=== PATIENT | male | born 1950 | race Caucasian/White ===

== ENCOUNTER 2023-08-16 05:51 | Observation (INO) ==
[2023-08-16] MEDS ORDERED: Buffered Lidocaine 1% SYRIN 1 ml INTRADERM ONE (06:00)
[2023-08-16] MEDS ORDERED: Famotidine IV 10 MG/ML 2 ml VIAL (20 mg) IV ONE (06:00)
[2023-08-16] MEDS ORDERED: Lactated Ringers 1000 ml BAG 1,000 ML IV SCH (06:00)
[2023-08-16] MEDS ORDERED: Tranexamic Acid 1 GM/100ML BAG 2,000 MG/200 ML BAG IV ONE (06:07)
[2023-08-16] MEDS ORDERED: ceFAZolin 2 GM PREMIX 2 GM/50 ML BAG ONE (06:07)
[2023-08-16] MEDS ORDERED: Famotidine IV 10 MG/ML 2 ml VIAL (20 mg) ONE (06:07)
[2023-08-16 06:33] LABS: Rapid COVID-19 Molecular Undetected (Undetected)
[2023-08-16] MEDS ORDERED: Phenylephrine IV 10 MG/ML 1 ml VIAL ONE (06:39)
[2023-08-16] MEDS ORDERED: Propofol 10 MG/ML 20 ML BTL ONE (06:39)
[2023-08-16] MEDS ORDERED: Lidocaine 2% PF 5 ML VIAL ONE (06:39)
[2023-08-16] MEDS ORDERED: fentaNYL 100 mcg/2 ml 50 MCG/ML VIAL ONE ×2 (06:39→07:12)
[2023-08-16] MEDS ORDERED: Midazolam 2 mg/2 ml VIAL 1 mg/ml 2 ml VIAL (2 mg) ONE (06:39)
[2023-08-16] MEDS ORDERED: ROPIVACAINE 5 MG/ML 30 ML BTL (0.5%) ONE ×2 (06:52→07:12)
[2023-08-16] MEDS ORDERED: Midazolam 5 mg/5 ml VIAL 1 mg/ml 5 ml VIAL (5 mg) ONE (07:12)
[2023-08-16] MEDS ORDERED: Dexamethasone IV 4 MG/ML VIAL 1 ml VIAL ONE (08:54)
[2023-08-16] MEDS ORDERED: fentaNYL 100 mcg/2 ml 50 MCG/ML VIAL IV PRN (08:55)
[2023-08-16] MEDS ORDERED: HYDROmorphone 1 MG/1 ML SYRINGE IV PRN (08:55)
[2023-08-16] MEDS ORDERED: Ondansetron 4 mg VIAL 2 MG/ML 2 ml VIAL ONE (08:55)
[2023-08-16] MEDS ORDERED: Naloxone 0.4 mg VIAL 0.4 mg/ml 1 ml VIAL IV PRN (08:55)
[2023-08-16] MEDS ORDERED: Morphine 2 MG/ML SYRINGE IV PRN (10:57)
[2023-08-16] MEDS ORDERED: Ondansetron ODT 4 mg TAB 4 MG TAB PO PRN (10:57)
[2023-08-16] MEDS ORDERED: Lactulose 30 ml UDC PO PRN (10:57)
[2023-08-16] MEDS ORDERED: Magnesium Hydroxide LIQ 30 ML UDC PO PRN (10:57)
[2023-08-16] MEDS ORDERED: Ondansetron 4 mg VIAL 2 MG/ML 2 ml VIAL IV PRN (10:57)
[2023-08-16] MEDS: Lactated Ringers 1000 ml BAG 1,000 ML IV SCH ×2 (12:52→22:47)
[2023-08-16] MEDS: ceFAZolin 1 GM ADVAN 1 GM in NS 0.9% 50 ML 50 ML IVPB SCH (17:04)
[2023-08-16] MEDS: Magnesium Hydroxide LIQ 30 ML UDC PO SCH (20:02)
[2023-08-17] MEDS: ceFAZolin 1 GM ADVAN 1 GM in NS 0.9% 50 ML 50 ML IVPB SCH ×2 (01:04→08:41)
[2023-08-17 07:27] LABS: Platelet Count 187 10^3/uL (150-450)
[2023-08-17 07:47] LABS: Calcium 8.1 mg/dL (8.6-10.3); Creatinine, Serum 1.04 mg/dL (0.67-1.17); Potassium 3.7 mmol/L (3.5-5.0); eGFR CKD-EPI 75.3 (>60)
[2023-08-17 07:53] LABS: Hematocrit 32.3 % (38-53); Hemoglobin 11.3 g/dL (13.2-16.3); Mean Platelet Volume 8.7 fL (7.5-11.2)
[2023-08-17] MEDS: Magnesium Hydroxide LIQ 30 ML UDC PO SCH (08:44)
[2023-08-17] MEDS ORDERED: Vitamin THERAPEUTIC TAB PO SCH (09:00)
[2023-08-17 10:13] VITALS: BP 109/66
[2023-08-17] MEDS ORDERED: Aspirin EC 81 mg TAB.EC (enteric coated) PO SCH (21:00)
== END 2023-08-17 11:35 | disposition home or self-care (01) ==
LOC: OR 05:51 → SSU 05:51
PROVIDERS: ADMIT Orthopaedic Surgery Adult Reconstructive Orthopaedic Surgery; ATTEND Orthopaedic Surgery Adult Reconstructive Orthopaedic Surgery